=== PATIENT | male | born 1945 | race Caucasian/White ===

== ENCOUNTER 2016-08-12 18:07 | Emergency (ER) | payer OTHER ==
[~2016-08-12] VITALS: Ht 182.9 cm; Wt 90.0 kg
[2016-08-12 18:16] VITALS: BP 133/62; PULSE 104; RESP 18; TEMP 98.6; O2SAT 95
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
[2016-08-12] MEDS ORDERED: SODIUM CHLOR 0.9% 1000 ML INJ 1,000 ML IV ONE (18:30)
[2016-08-12 18:41] LABS: AUTOMATED NEUTROPHIL # 3.3 TH/MM3 (1.8-7.7); BASOPHIL % 0.7 % (0.0-2.0); EOSINOPHIL # 0.2 TH/MM3 (0-0.4); EOSINOPHIL % 3.6 % (0.0-4.0); HEMATOCRIT 35.8 % (39.0-51.0); HEMO FLAGS DIFF FINAL; LYMPH % 33.3 % (9.0-44.0); LYMPHOCYTE # 2.1 TH/MM3 (1.0-4.8); MEAN CORPUSCULAR HEMOGLOBIN 31.9 PG (27.0-34.0); MEAN CORPUSCULAR HGB CONC 32.9 % (32.0-36.0); MONO % 11.1 % (0.0-8.0); NEUT % 51.3 % (16.0-70.0); PLATELET COUNT 227 TH/MM3 (150-450); RED BLOOD COUNT 3.69 MIL/MM3 (4.50-5.90); RED CELL DISTRIBUTION WIDTH 15.8 % (11.6-17.2); WHITE BLOOD COUNT 6.4 TH/MM3 (4.0-11.0)
[2016-08-12 19:18] LABS: ANION GAP 16 MEQ/L (5-15)
[2016-08-12 19:19] LABS: ALKALINE PHOSPHATASE 75 U/L (45-117); ALT (GPT) 47 U/L (12-78); AST (GOT) 59 U/L (15-37); BICARBONATE 20.5 MEQ/L (21.0-32.0); BLOOD UREA NITROGEN 12 MG/DL (7-18); CHLORIDE 103 MEQ/L (98-107); GLOMERULAR FILTRATION RATE 67 ML/MIN (>89); POTASSIUM 3.8 MEQ/L (3.5-5.1); SODIUM (NA) 139 MEQ/L (136-145); TOTAL BILIRUBIN ADULT 0.1 MG/DL (0.2-1.0)
[2016-08-12 20:02] LABS: AMPHETAMINE, URINE NEG (NEG); BARBITURATES, URINE NEG (NEG); COCAINE, URINE NEG (NEG)
== END 2016-08-13 03:08 | disposition home or self-care (01) ==
LOC: NEPD 18:07
DX: F10.920 Alcohol use, unspecified with intoxication, uncomplicated (principal)
CPT/HCPCS: 80053; 80307; 85025; 96360; 99284; J7030

== ENCOUNTER 2017-02-06 07:27 | Emergency (ER) | payer OTHER ==
[~2017-02-06] VITALS: Ht 182.9 cm; Wt 91.0 kg
[2017-02-06 07:32] VITALS: BP 152/82; PULSE 89; RESP 20; TEMP 97.5; O2SAT 100
[2017-02-06 07:57] VITALS: RESP 18; O2SAT 98; O2SAT 99
[2017-02-06] MEDS ORDERED: SODIUM CHLORIDE 0.9% FLUSH 10 ML FLUSH IVF PRN (08:00)
[2017-02-06 08:16] LABS: AUTOMATED NEUTROPHIL # 6.1 TH/MM3 (1.8-7.7); BASOPHIL # 0.1 TH/MM3 (0-0.2); BASOPHIL % 0.8 % (0.0-2.0); EOSINOPHIL # 0.1 TH/MM3 (0-0.4); EOSINOPHIL % 1.8 % (0.0-4.0); HEMATOCRIT 36.5 % (39.0-51.0); HEMO FLAGS DIFF FINAL; LYMPHOCYTE # 1.3 TH/MM3 (1.0-4.8); MEAN CELL VOLUME 103.2 FL (80.0-100.0); MEAN CORPUSCULAR HEMOGLOBIN 36.5 PG (27.0-34.0); MEAN CORPUSCULAR HGB CONC 35.4 % (32.0-36.0); MONO % 9.1 % (0.0-8.0); NEUT % 72.3 % (16.0-70.0); PLATELET COUNT 240 TH/MM3 (150-450); RED BLOOD COUNT 3.54 MIL/MM3 (4.50-5.90); RED CELL DISTRIBUTION WIDTH 16.8 % (11.6-17.2); WHITE BLOOD COUNT 8.4 TH/MM3 (4.0-11.0)
[2017-02-06 08:26] LABS: PROTHROMBIN TIME - PATIENT 11.5 SEC (9.8-11.6)
[2017-02-06 08:29] LABS: APTT (PATIENT) 28.9 SEC (24.3-30.1)
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
[2017-02-06 09:13] LABS: BACTERIA, URINE RARE /hpf; BLOOD, URINE NEG (NEG); COMMENT (UR) CULT NOT INDICATED; CULTURE IF INDICATED CULT NOT INDICATED; GLUCOSE,URINE NEG (NEG); KETONE, URINE NEG (NEG); MUCUS URINE FEW /lpf (OCC); NITRITE,URINE NEG (NEG); PH, URINE 5.5 (5.0-8.5); URINE COLOR LIGHT-YELLOW (YELLW/STRAW)
[2017-02-06 09:27] LABS: BICARBONATE 25.1 MEQ/L (21.0-32.0)
[2017-02-06 09:28] LABS: POTASSIUM 4.4 MEQ/L (3.5-5.1)
[2017-02-06 09:30] VITALS: BP 180/70; PULSE 80; RESP 20; O2SAT 97
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
[2017-02-06 13:30] VITALS: BP 132/78; PULSE 90; RESP 20; O2SAT 98
--- NOTE | 2017-02-06 19:02 | EKG ---
Date Performed: 02/06/2017 Time Performed: 07:45:54 PTAGE: 71 years EKG: Sinus rhythm Since previous tracing, no significant change noted NORMAL ECG PREVIOUS TRACING : 03/18/2016 15.46 DOCTOR: Cortez Meléndez Interpretating Date/Time 02/06/2017 19:01:59
== END 2017-02-06 16:20 | disposition home or self-care (01) ==
LOC: NEPE 07:27
DX: F10.129 Alcohol abuse with intoxication, unspecified (principal); H02.846 Edema of left eye, unspecified eyelid
CPT/HCPCS: 70450; 70486; 71010; 72125; 80048; 80307; 81001; 85025; 85610; 85730; 86850; 86900; 86901; 93005; 99285